=== PATIENT | male | born 1955 | race Caucasian/White ===

== ENCOUNTER → 2019-09-22 10:23 | Outpatient (CLI) | payer SELFPAY ==
[2019-09-22 10:15] VITALS: BMI 29.0
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
== END ==
PROVIDERS: Referring Provider Physician Assistant; Visit Provider Physician Assistant
DX: S69.91XA Unspecified injury of right wrist, hand and finger(s), initial encounter (principal); X58.XXXA Exposure to other specified factors, initial encounter
CPT/HCPCS: 73130